=== PATIENT | male | born 1995 | race Caucasian/White ===

== ENCOUNTER 2019-03-22 18:04 | Emergency (ER) | payer OTHER ==
[2019-03-22 18:25] VITALS: BP 129/85
--- NOTE | 2019-03-22 18:31 | UC ---
General HPI - HPI Summary HPI Summary: lost his earbud in R ear today. - History of Current Complaint Chief Complaint: UCEar Stated Complaint: EAR BUD IN RIGHT EAR Time Seen by Provider: 03/22/19 18:19 Hx Obtained From: Patient Timing: Constant Pain Intensity: 0 Associated Signs & Symptoms: Negative: Fever - Allergy/Home Medications Allergies/Adverse Reactions: Allergies Allergy/AdvReac Type Severity Reaction Status Date / Time haloperidol AdvReac "knocks me Verified 03/22/19 18:24 out" Home Medications: Home Medications NK [No Home Medications Reported] 03/22/19 [History Confirmed 03/22/19] PMH/Surg Hx/FS Hx/Imm Hx Previously Healthy: Yes - Surgical History Surgical History: None - Family History Known Family History: Positive: Non-Contributory - Social History Occupation: Student Alcohol Use: Weekly Alcohol Amount: 3-4 drinks a week Substance Use Type: Marijuana Substance Use Comment - Amount & Last Used: once a week Smoking Status (MU): Current Some Day Smoker Type: Cigarettes Review of Systems All Other Systems Reviewed And Are Negative: No Constitutional: Negative: Fever ENT: Negative: Sore Throat, Ear Ache, Nasal Discharge Physical Exam Triage Information Reviewed: Yes Appearance: Well-Appearing Vital Signs: Initial Vital Signs Temp 97.9 F 03/22/19 18:21 Pulse 95 03/22/19 18:21 Resp 18 03/22/19 18:21 BP 129/85 03/22/19 18:21 Pulse Ox 100 03/22/19 18:21 Vital Signs Reviewed: Yes Eyes: Positive: Conjunctiva Clear ENT: Positive: Pharynx normal, Other - Earbud in R ear canal. Cerumen in L canal.. Negative: Nasal congestion, Nasal drainage Respiratory: Positive: No respiratory distress Musculoskeletal: Positive: ROM Intact Neurological: Positive: Alert Psychological: Positive: Age Appropriate Behavior Skin Exam: Normal Course/Dx - Course Course Of Treatment: Procedure by this provider: Earbud removed from r canal. no trauma. Cerumen impaction noted. Tolerated well. Cerumen removed by flushing d/w pt. pt declined. - Diagnoses Provider Diagnosis: Foreign body in right ear Discharge - Sign-Out/Discharge Documenting (check all that apply): Patient Departure All imaging exams completed and their final reports reviewed: No Studies - Discharge Plan Condition: Stable Disposition: HOME Patient Education Materials: Cerumen Impaction (ED), Ear Foreign Body (ED) Referrals: Juan Carlos Martinez MD [Medical Doctor] - If Needed - Billing Disposition and Condition Condition: STABLE Disposition: Home
== END 2019-03-22 18:37 | disposition home or self-care (01) ==
LOC: UCCORT 18:04
DX: T16.1XXA Foreign body in right ear, initial encounter (principal); H61.22 Impacted cerumen, left ear; F17.210 Nicotine dependence, cigarettes, uncomplicated; Z88.8 Allergy status to other drugs, medicaments and biological substances; X58.XXXA Exposure to other specified factors, initial encounter
CPT/HCPCS: 69200; 99201; G0463